=== PATIENT | male | born 1995 | race Caucasian/White ===

== ENCOUNTER 2020-03-20 14:09 | Emergency (ER) | payer SELFPAY ==
[~2020-03-20] VITALS: Ht 182.9 cm; Wt 97.5 kg
[2020-03-20 14:50] VITALS: Ht 182.9 cm; Wt 97.5 kg
[2020-03-20 15:30] VITALS: BP 126/77
== END 2020-03-20 15:30 | disposition home or self-care (01) ==
LOC: ED 14:09
DX: U07.1 COVID-19 (principal); B34.9 Viral infection, unspecified
CPT/HCPCS: U0003-CS